=== PATIENT | male | born 1985 | race Two or more races ===

== ENCOUNTER 2019-10-23 13:37 | Emergency (ER) | payer OTHER ==
[2019-10-23 13:42] VITALS: BP 121/61; PULSE 88; TEMP 98.4; BMI 29.8
[2019-10-23] MEDS ORDERED: DIPHTH,PERTUSS(ACELL),TET 0.5 ML DISP.SYRIN IM ONE ×2 (13:59→14:29)
--- NOTE | 2019-10-23 14:05 | PDOC ---
History of Present Illness - General Chief Complaint: Wound Stated Complaint: LFT ARM INJURY Time Seen by Provider: 10/23/19 13:45 - History of Present Illness Initial Comments: 10/23/19 14:03 34-year-old male without comorbidities presents for left arm pain after receiving a tattoo 4 days ago. No systemic symptoms. Complains of pain about the area. Past History - Medical History Allergies/Adverse Reactions: Allergies Allergy/AdvReac Type Severity Reaction Status Date / Time No Known Allergies Allergy Verified 10/23/19 13:42 Home Medications: Ambulatory Orders Cephalexin [Keflex] 500 mg PO QID #40 capsule 10/23/19 Sulfamethoxazole/Trimethoprim [Bactrim Ds -] 1 tab PO BID #14 tablet 10/23/19 - Psycho-Social/Smoking History Smoking History: Current some day smoker Number of Cigarettes Smoked Daily: 1 Information on smoking cessation initiated: No - Substance Abuse Hx (Audit-C & DAST Scrn) How often the patient has a drink containing alcohol: Monthly or less Score: In Men: 4 or > Positive; In Women: 3 or > Positive: 1 Screen Result (Pos requires Nsg. Audit-10AR): Negative In the last yr the pt used illegal drug/Rx for NonMed reason: No Score: Yes response is considered Positive: 0 Screen Result (Positive result requires Nsg. DAST-10): Negative Review of Systems - Review of Systems Constitutional: No: Fever *Physical Exam - Vital Signs Last Vital Signs Temp Pulse Resp BP Pulse Ox 98.4 F 88 16 121/61 100 10/23/19 13:40 10/23/19 13:40 10/23/19 13:40 10/23/19 13:40 10/23/19 13:40 - Physical Exam 10/23/19 14:04 Fresh tattoo medial aspect of left arm. On the skin overlying the elbow. Some scabbing and crusting mild erythema no warmth induration or sensitivity. Upper extremity compartments are soft nontender no areas of fluctuance neurovascular intact ED Treatment Course - RADIOLOGY Radiology Studies Ordered: Category Date Time Status ELBOW-LEFT [RAD] Stat Radiology 10/23/19 13:59 Ordered Medical Decision Making - Medical Decision Making 10/23/19 14:04 No evidence of foreign body on radiograph. We will treat as a cellulitis with Keflex and Bactrim follow-up with primary care physician I have reviewed the pathophysiology with the patient. They are in agreement with the treatment plan all questions were answered to their satisfaction. Understanding for follow-up without fail was also conveyed to the patient. Again they are in agreement. Discharge - Discharge Information Problems reviewed: Yes Clinical Impression/Diagnosis: Cellulitis of left arm Condition: Stable Disposition: HOME - Admission No - Additional Discharge Information Prescriptions: Sulfamethoxazole/Trimethoprim [Bactrim Ds -] 1 tab PO BID #14 tablet Cephalexin [Keflex] 500 mg PO QID #40 capsule - Follow up/Referral Referrals: Hernan Eric MD [Staff Physician] - - Patient Discharge Instructions Additional Instructions: Please take the antibiotics as directed. Tylenol Motrin as directed for pain. Your tetanus shot was updated today. Return to the emergency room for worsening symptoms. Without fail follow-up with your primary care physician in 1 to 2 days for further evaluation and treatment options. If you cannot follow-up within 48 hours please return to the emergency room in 48 hours for wound check. - Post Discharge Activity
[2019-10-23] MEDS ORDERED: ACETAMINOPHEN 500 MG TABLET (FP) ONE (14:50)
== END 2019-10-23 14:37 | disposition home or self-care (01) ==
LOC: JER 13:37
PROC: 3E0234Z Introduction of Serum, Toxoid and Vaccine into Muscle, Percutaneous Approach (ICD-10-PCS; principal; 2019-10-23)
DX: L03.114 Cellulitis of left upper limb (principal)
CPT/HCPCS: 73070-TC-LT-FY; 90715; 99284-25